=== PATIENT | female | born 1940 | race Caucasian/White ===

== ENCOUNTER 2020-06-23 10:00 | Emergency (ER) | payer MEDICARE ==
[2020-06-23 10:50] LABS: HEMOGLOBIN 13.7 gm/dl (12.3-15.3); RED BLOOD COUNT 4.6 M/UL (4.00-5.10); WHITE BLOOD COUNT 4.9 K/UL (4.5-11.0)
== END 2020-06-23 14:57 | disposition home or self-care (01) ==
LOC: ER1 10:00
PROVIDERS: Family Medicine
DX: U07.1 COVID-19 (principal); I11.9 Hypertensive heart disease without heart failure; E78.5 Hyperlipidemia, unspecified; E03.9 Hypothyroidism, unspecified
CPT/HCPCS: 71045; 80053; 83615; 85025; 86140; 99283; M0239

== ENCOUNTER → 2020-10-21 | Outpatient (CLI) | payer MEDICARE | LOC: KOH-I 16:11 | DX: M54.6 Pain in thoracic spine (principal); M47.814 Spondylosis without myelopathy or radiculopathy, thoracic region | CPT/HCPCS: 72070 ==

== ENCOUNTER → 2021-05-19 | Outpatient (CLI) | payer MEDICARE | LOC: ECHO 09:57 | DX: R07.9 Chest pain, unspecified (principal); R42 Dizziness and giddiness; R53.83 Other fatigue; G47.34 Idiopathic sleep related nonobstructive alveolar hypoventilation; R00.2 Palpitations; I11.9 Hypertensive heart disease without heart failure; I27.20 Pulmonary hypertension, unspecified; I08.3 Combined rheumatic disorders of mitral, aortic and tricuspid valves | CPT/HCPCS: ECHO; 93306 ==

== ENCOUNTER → 2021-07-06 | Outpatient (CLI) | payer MEDICARE | LOC: HEART 5 14:10 | DX: R00.2 Palpitations (principal) ==